=== PATIENT | female | born 1980 | race Caucasian/White ===

== ENCOUNTER 2018-04-19 21:02 | Observation (INO) ==
[2018-04-19 21:46] LABS: Basophils # 0.1 K/mcL (0.0-0.2); Basophils % 0.7 %; Eosinophils # 0.2 K/mcL (0.0-0.6); Eosinophils % 2.2 %; Hematocrit 25.6 % (35.3-44.9); Hemoglobin 6.9 g/dL (11.5-15.4); Immature Granulocytes % 0.4 % (0-4); Lymphocytes # 1.9 K/mcL (0.6-4.6); Lymphocytes % 26.6 %; Mean Corpuscular Hemoglobin 18.4 pg (28.0-33.3); Mean Corpuscular Volume 68.3 fL (83.0-100.0); Mean Platelet Volume 10.2 fL (9.4-12.4); Monocytes # 0.5 K/mcL (0.0-1.3); Monocytes % 6.4 %; Neutrophils # 4.6 K/mcL (1.6-8.9); Platelet Count 370 K/mcL (140-400); Red Blood Count 3.75 M/mcL (3.82-4.97); Red Cell Distribution Width 19.5 % (11.5-14.5); Segmented Neutrophils % 63.7 %
--- NOTE | 2018-04-19 21:56 | Emergency Department Note ---
Disposition Clinical Impression: Microcytic anemia, Acute dyspnea Dyspnea Qualifiers: Dyspnea type: unspecified Qualified Code(s): R06.00 - Dyspnea, unspecified Disposition: Admitted As Inpatient Condition: Good Referrals: NONE,PCP [Primary Care Provider] - Forms: ED Satisfaction Letter SOB HPI - General Chief Complaint: ED Shortness of Breath/Dyspnea Stated Complaint: kay Time Seen by Provider: 04/19/18 21:34 Source: patient Mode of arrival: private vehicle Limitations: no limitations Nursing Notes Reviewed: Yes Vital Signs Reviewed: Yes - History of Present Illness 37-year-old female history of depression, smoking who presents to the ER due to shortness of breath and cough. Reports she has had a cough for about the last week in duration. No fevers or sputum production during that time. States she has had bronchitis several times in the past attributing it to her smoking. Patient reports that she then started having some chest pain in the center of her chest worse with coughing or with palpation. No prior history of cardiac disease, DVT or pulmonary embolism. She reports decreased activity at home secondary to general malaise. No other complaints. Pt Subjective Complaint: shortness of breath Onset (ago): day(s) Context: recent illness Severity: mild Consistency/Duration: intermittent Improves with: nothing Worsens with: nothing Associated symptoms: Reports: chest pain, cough. Denies: fever, sputum production Treatment prior to arrival: none Cough present: Yes - Related Data Home oxygen amount: none Home Medications Medication Instructions Recorded Confirmed Prozac 10/20/17 Previous Rx's Medication Instructions Recorded Cyclobenzaprine [Flexeril] 10 mg PO HS PRN #10 tablet 10/20/17 methylPREDNISolone [Medrol] 0 mg PO DAILY #21 tablet 10/20/17 Allergies Allergy/AdvReac Type Severity Reaction Status Date / Time aspirin Allergy See Verified 01/16/18 01:35 Comments All systems ED: reviewed and negative except as stated. Constitutional: Denies: fever ENT ED: Denies: epistaxis Cardiovascular: Reports: chest pain Respiratory: Reports: cough, dyspnea. Denies: wheezes, hemoptysis, sputum production Gastrointestinal: Denies: nausea, vomiting, diarrhea, hematemesis, melena, hematochezia Genitourinary: Denies: hematuria Past Medical History - Past Medical History Attestation: Yes The following information was validated with the patient. 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 - Social History Smoking Status: Current every day smoker Smokeless Tobacco Status: No Alcohol use: Reports: none Drug use: Reports: none Physical Exam - General Limitations: no limitations General appearance: alert, in no apparent distress - Head Head exam: atraumatic, normocephalic - Eye Eye exam: Present: normal appearance - ENT ENT exam: normal exam - Neck Neck exam: Present: normal inspection - Chest Chest inspection: Present: normal inspection, symmetric chest wall rise - Respiratory Respiratory exam: Present: normal lung sounds bilaterally - Cardiovascular Cardiovascular exam: Present: regular rate, normal rhythm, normal heart sounds - Abdominal Exam Abdominal exam: Present: soft, Non-Tender. Absent: tenderness, distention, rigidity - Extremities Exam Extremities exam: Present: normal inspection, full ROM - Expanded Upper Extremity Exam Shoulder exam: Present: normal inspection, full ROM Arm exam: Present: normal inspection, full ROM Elbow exam: Present: normal inspection, full ROM Forearm/Wrist exam: Present: normal inspection, full ROM Hand exam: Present: normal inspection, full ROM - Expanded Lower Extremity Exam Hip/Pelvis exam: Present: normal inspection, full ROM Upper leg exam: Present: normal inspection, full ROM Knee exam: Present: normal inspection, full ROM Lower leg exam: Present: normal inspection, full ROM Ankle exam: Present: normal inspection, full ROM Foot/toe exam: Present: normal inspection, full ROM - Skin Skin exam: Present: other (pale) Course Course Narrative: Patient seen and examined. Vital signs reviewed. EKG, chest x-ray as well as labs. - Reevaluation(s) Reevaluation #1: Labs reviewed. Hemoglobin of 6.9. Plan to repeat the hemoglobin and hematocrit as well as type and screen and coag studies. Vital Signs Temperature 98.0 F 04/19/18 21:06 Pulse Rate 69 04/19/18 21:06 Respiratory Rate 16 04/19/18 21:06 Blood Pressure 131/85 04/19/18 21:06 O2 Sat by Pulse Oximetry 98 04/19/18 21:06 Temperature 98.0 F 04/19/18 21:06 Pulse Rate 61 04/19/18 23:24 Respiratory Rate 18 04/19/18 23:24 Blood Pressure 129/92 04/19/18 23:24 O2 Sat by Pulse Oximetry 99 04/19/18 23:24 Oxygen Delivery Oxygen Delivery Room Air Shortness of Breath/Dyspnea - [facility] Narrative Medical decision making narrative: 37-year-old female with shortness of breath and cough for several days. Found to have a hemoglobin of 6.9 confirmed with repeat of 6.7. She is on her period currently however this is her baseline and she does not report heavy bleeding. No bleeding from any other source. Rectal exam contaminated given presence of vaginal blood. Hemodynamically stable. Type and cross for 1 unit of transfusion. Admitted to the hospitalist service. - Lab Data Lab results reviewed: Yes I reviewed the patient's lab results. Result diagrams: 04/19/18 22:48 04/19/18 21:29 Lab Results 04/19/18 04/19/18 04/19/18 Range/Units 21:29 21:29 21:29 WBC 7.2 (4.3-11.1) K/mcL RBC 3.75 L (3.82-4.97) M/mcL Hgb 6.9 L (11.5-15.4) g/dL Hct 25.6 L (35.3-44.9) % MCV 68.3 L (83.0-100.0) fL MCH 18.4 L (28.0-33.3) pg MCHC 27.0 L (31.6-35.5) g/dL RDW 19.5 H (11.5-14.5) % Plt Count 370 (140-400) K/mcL MPV 10.2 (9.4-12.4) fL Immature Gran % 0.4 (0-4) % Seg Neutrophils % 63.7 % Lymphocytes % 26.6 % Monocytes % 6.4 % Eosinophils % 2.2 % Basophils % 0.7 % Neutrophils # 4.6 (1.6-8.9) K/mcL Lymphocytes # 1.9 (0.6-4.6) K/mcL Monocytes # 0.5 (0.0-1.3) K/mcL Eosinophils # 0.2 (0.0-0.6) K/mcL Basophils # 0.1 (0.0-0.2) K/mcL Platelet Estimate Normal (Normal) Hypochromasia Present A (Not Present) Anisocytosis 1+ A (Not Present) Microcytosis Present A (Not Present) PT (9.4-12.1) Seconds INR Sodium 136 (136-145) mEq/L Potassium 3.7 (3.5-5.1) mEq/L Chloride 109 H (98-107) mEq/L Carbon Dioxide 21 L (23-29) mEq/L BUN 11 (6-20) mg/dL Creatinine 0.77 (0.60-1.20) mg/dL Est GFR ( Amer) > 60 (> 60) Est GFR (Non-Af Amer) > 60 (> 60) BUN/Creatinine Ratio 14 (6-26) Glucose 95 (70-105) mg/dL Calculated Osmolality 281 (280-300) Lactic Acid 0.7 (0.5-2.2) mmol/L Calcium 8.9 (8.6-10.3) mg/dL Troponin I < 0.03 (< 0.04) ng/mL B-Natriuretic Peptide (Less than 100) pg/mL 04/19/18 04/19/18 04/19/18 Range/Units 21:29 22:24 22:48 WBC (4.3-11.1) K/mcL RBC (3.82-4.97) M/mcL Hgb 6.7 L (11.5-15.4) g/dL Hct 24.3 L (35.3-44.9) % MCV (83.0-100.0) fL MCH (28.0-33.3) pg MCHC (31.6-35.5) g/dL RDW (11.5-14.5) % Plt Count (140-400) K/mcL MPV (9.4-12.4) fL Immature Gran % (0-4) % Seg Neutrophils % % Lymphocytes % % Monocytes % % Eosinophils % % Basophils % % Neutrophils # (1.6-8.9) K/mcL Lymphocytes # (0.6-4.6) K/mcL Monocytes # (0.0-1.3) K/mcL Eosinophils # (0.0-0.6) K/mcL Basophils # (0.0-0.2) K/mcL Platelet Estimate (Normal) Hypochromasia (Not Present) Anisocytosis (Not Present) Microcytosis (Not Present) PT 11.4 (9.4-12.1) Seconds INR 1.1 Sodium (136-145) mEq/L Potassium (3.5-5.1) mEq/L Chloride (98-107) mEq/L Carbon Dioxide (23-29) mEq/L BUN (6-20) mg/dL Creatinine (0.60-1.20) mg/dL Est GFR ( Amer) (> 60) Est GFR (Non-Af Amer) (> 60) BUN/Creatinine Ratio (6-26) Glucose (70-105) mg/dL Calculated Osmolality (280-300) Lactic Acid (0.5-2.2) mmol/L Calcium (8.6-10.3) mg/dL Troponin I (< 0.04) ng/mL B-Natriuretic Peptide 60 (Less than 100) pg/mL - Radiology Data Radiology results reviewed: Yes I reviewed the patient's radiology results. Chest X-Ray 04/19/18 21:09 IMPRESSION: Negative portable chest. D/ / Fernando Anderson MD / Fernando Anderson MD Interpreting Provider: Fernando Anderson MD - EKG Data EKG attestation: Yes I reviewed and interpreted this EKG. EKG results narrative: EKG demonstrates sinus rhythm. Normal axis. Normal intervals. Normal R-wave progression. No gross ST elevations or depressions. No acute ischemic findings. Cyrus - Cyrus Situation: Demographics, MOA Background: Presenting Complaint, Relevant PMH, Meds, & Allergies Assessment: Course and respsone to treatment, Exam Concerns, Patient/Family Expectation, Pertinant Lab Results Recommendation: Barrier(s) to disposition, Recommendation based on pending studies, treatments, or consults Cyrus Report Given to: Dr. Miki Bridges Repor Time: 23:43
[2018-04-19 22:06] LABS: BUN/Creatinine Ratio 14 (6-26); Blood Urea Nitrogen 11 mg/dL (6-20); Calcium 8.9 mg/dL (8.6-10.3); Carbon Dioxide 21 mEq/L (23-29); Chloride 109 mEq/L (98-107); Glucose 95 mg/dL (70-105); Osmolality,Calculated 281 (280-300); Potassium 3.7 mEq/L (3.5-5.1); Sodium 136 mEq/L (136-145); eGFR For African Americans > 60 (> 60); eGFR For Non-African Americans > 60 (> 60)
[2018-04-19 22:07] LABS: Troponin I < 0.03 ng/mL (< 0.04)
[2018-04-19 22:12] LABS: Anisocytosis 1+ (Not Present); Hypochromasia Present (Not Present); Microcytosis Present (Not Present); Platelet Estimate Normal (Normal)
--- NOTE | 2018-04-19 22:31 | Emergency Department Note ---
Disposition Clinical Impression: Microcytic anemia, Acute dyspnea Disposition: Admitted As Inpatient Condition: Fair Referrals: NONE,PCP [Primary Care Provider] - Forms: ED Satisfaction Letter Time of Disposition: 23:41 General Adult HPI - General Chief complaint: ED Shortness of Breath/Dyspnea Stated complaint: kay Time Seen by Provider: 04/19/18 21:34 Source: patient Limitations: no limitations Nursing Notes Reviewed: Yes Vital Signs Reviewed: Yes - History of Present Illness Pain Scale: 3 - Related Data Home Medications Medication Instructions Recorded Confirmed Prozac 10/20/17 Previous Rx's Medication Instructions Recorded Cyclobenzaprine [Flexeril] 10 mg PO HS PRN #10 tablet 10/20/17 methylPREDNISolone [Medrol] 0 mg PO DAILY #21 tablet 10/20/17 Allergies Allergy/AdvReac Type Severity Reaction Status Date / Time aspirin Allergy See Verified 01/16/18 01:35 Comments Past Medical History - Past Medical History Medical history: Reports: no medical history Surgical history: Reports: Psychiatric history: Reports: anxiety, 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 - Social History Smoking Status: Current every day smoker Smokeless Tobacco Status: No Alcohol use: Reports: none Drug use: Reports: none Physical Exam - General Limitations: no limitations General appearance: alert, in no apparent distress Course Vital Signs Temperature 98.0 F 04/19/18 21:06 Pulse Rate 69 04/19/18 21:06 Respiratory Rate 16 04/19/18 21:06 Blood Pressure 131/85 04/19/18 21:06 O2 Sat by Pulse Oximetry 98 04/19/18 21:06 Temperature 98.0 F 04/19/18 21:06 Pulse Rate 61 04/19/18 23:24 Respiratory Rate 18 04/19/18 23:24 Blood Pressure 129/92 04/19/18 23:24 O2 Sat by Pulse Oximetry 99 04/19/18 23:24 Oxygen Delivery Oxygen Delivery Room Air Medical Decision Making - Lab Data Result diagrams: 04/19/18 22:48 04/19/18 21:29 Lab Results 04/19/18 04/19/18 04/19/18 Range/Units 21:29 21:29 21:29 WBC 7.2 (4.3-11.1) K/mcL RBC 3.75 L (3.82-4.97) M/mcL Hgb 6.9 L (11.5-15.4) g/dL Hct 25.6 L (35.3-44.9) % MCV 68.3 L (83.0-100.0) fL MCH 18.4 L (28.0-33.3) pg MCHC 27.0 L (31.6-35.5) g/dL RDW 19.5 H (11.5-14.5) % Plt Count 370 (140-400) K/mcL MPV 10.2 (9.4-12.4) fL Immature Gran % 0.4 (0-4) % Seg Neutrophils % 63.7 % Lymphocytes % 26.6 % Monocytes % 6.4 % Eosinophils % 2.2 % Basophils % 0.7 % Neutrophils # 4.6 (1.6-8.9) K/mcL Lymphocytes # 1.9 (0.6-4.6) K/mcL Monocytes # 0.5 (0.0-1.3) K/mcL Eosinophils # 0.2 (0.0-0.6) K/mcL Basophils # 0.1 (0.0-0.2) K/mcL Platelet Estimate Normal (Normal) Hypochromasia Present A (Not Present) Anisocytosis 1+ A (Not Present) Microcytosis Present A (Not Present) PT (9.4-12.1) Seconds INR Sodium 136 (136-145) mEq/L Potassium 3.7 (3.5-5.1) mEq/L Chloride 109 H (98-107) mEq/L Carbon Dioxide 21 L (23-29) mEq/L BUN 11 (6-20) mg/dL Creatinine 0.77 (0.60-1.20) mg/dL Est GFR ( Amer) > 60 (> 60) Est GFR (Non-Af Amer) > 60 (> 60) BUN/Creatinine Ratio 14 (6-26) Glucose 95 (70-105) mg/dL Calculated Osmolality 281 (280-300) Lactic Acid 0.7 (0.5-2.2) mmol/L Calcium 8.9 (8.6-10.3) mg/dL Troponin I < 0.03 (< 0.04) ng/mL B-Natriuretic Peptide (Less than 100) pg/mL 05/30/18 05/30/18 05/30/18 Range/Units 21:29 22:24 22:48 WBC (4.3-11.1) K/mcL RBC (3.82-4.97) M/mcL Hgb 6.7 L (11.5-15.4) g/dL Hct 24.3 L (35.3-44.9) % MCV (83.0-100.0) fL MCH (28.0-33.3) pg MCHC (31.6-35.5) g/dL RDW (11.5-14.5) % Plt Count (140-400) K/mcL MPV (9.4-12.4) fL Immature Gran % (0-4) % Seg Neutrophils % % Lymphocytes % % Monocytes % % Eosinophils % % Basophils % % Neutrophils # (1.6-8.9) K/mcL Lymphocytes # (0.6-4.6) K/mcL Monocytes # (0.0-1.3) K/mcL Eosinophils # (0.0-0.6) K/mcL Basophils # (0.0-0.2) K/mcL Platelet Estimate (Normal) Hypochromasia (Not Present) Anisocytosis (Not Present) Microcytosis (Not Present) PT 11.4 (9.4-12.1) Seconds INR 1.1 Sodium (136-145) mEq/L Potassium (3.5-5.1) mEq/L Chloride (98-107) mEq/L Carbon Dioxide (23-29) mEq/L BUN (6-20) mg/dL Creatinine (0.60-1.20) mg/dL Est GFR ( Amer) (> 60) Est GFR (Non-Af Amer) (> 60) BUN/Creatinine Ratio (6-26) Glucose (70-105) mg/dL Calculated Osmolality (280-300) Lactic Acid (0.5-2.2) mmol/L Calcium (8.6-10.3) mg/dL Troponin I (< 0.04) ng/mL B-Natriuretic Peptide 60 (Less than 100) pg/mL Critical Care Time Critical Care Time: Yes Total Critical Care Time: 35 Attestation: Chest X-Ray 04/19/18 21:09 IMPRESSION: Negative portable chest. D/ / Fernando Anderson MD / Fernando Anderson MD Interpreting Provider: Fernando Anderson MD Attestation Statement - Attestation Attestation: I examined this patient and my medical decision-making was reviewed with the Resident Physician. I agree with the documented findings, disposition and treatment plan as described except to the extent set forth below. Patient presents to the ED as she complain of shortness of breath. Onset a few days ago. Started with a cough. Denies fever. On examination she is pale. Lungs clear. Abdomen soft. Plan. The patient is anemic. The patient denies heavy periods. She denies any GI bleeding. She denies any trauma. She denies any abdominal pain. Unclear why the patient is significant only anemic. We will repeat her H&H. If this is consistent with the first draw a she will need transfused and admitted.
[2018-04-19 22:57] LABS: INR 1.1; Prothrombin Time 11.4 Seconds (9.4-12.1)
[2018-04-19 23:00] LABS: Hematocrit 24.3 % (35.3-44.9); Hemoglobin 6.7 g/dL (11.5-15.4)
[2018-04-19] MEDS ORDERED: Naloxone 0.4 MG/ML INJ IVP PRN (23:56)
--- NOTE | 2018-04-20 00:05 | Internal Med History&Physical ---
Date of Encounter: 04/20/18 Time of Encounter: 00:02 Internal Medicine - H&P: HPI Chief complaint: SON, POTTS, chest pain History of present illness: Ms. Sorto is a 37 year old female with no prior significant medical history whose home medication list includes Prozac and prn sleeping pill who presents with 1 day hx of acute SOB, POTTS, chest pain. Found to have symptomatic anemia. She denies any prodromal history of fatigue or anemia symptoms and reports onset to be acute. Today she woke up and she felt tired and fatigued associated with dyspnea on exertion to [address] from [address] lot to the hospital. Associated with chest pain sternal no radiation rates 2-3 out of 10. In the ER was found to be in symptomatically anemia On review she denies any evidence of GI bleeding. She is on her period since Tuesday but reports them to be normal and has been unchanged for years. She uses on average 4 pads a day . She reports that her menstrual cycle were unchanged since a teenager and denies any increased bleeding that is more than usual. She has 3 children and status post tubal ligation. EKG personally reviewed with rate 69, normal sinus rhythm FINDINGS: The lungs are clear. The costophrenic angles are sharp. The heart size is at the upper limits of normal. There is no discernible pneumothorax. XR/XR chest 1V portable IMPRESSION: Negative portable chest. Past Med Surg Social Fam HX - Past Medical History Medical history: no medical history Additional medical history: old back injury Psychiatric history: anxiety, depression - Past Surgical History Surgical History: Additional surgical history: ABD SURGERIES - Social History Smoking Status: Current every day smoker Smokeless Tobacco Status: No Alcohol use: none Drug use: none Internal Medicine - H&P: Meds Prozac 10/20/17 [History] 3 Allergy/AdvReac Type Severity Reaction Status Date / Time aspirin Allergy See Verified 01/16/18 01:35 Comments All Systems PM: A 10-system review of systems was performed and is negative for pertinent findings except as documented above in the HPI. Review of systems: ROS 14 point review of systems reviewed as best as possible given presentation. Pertinent positive or negative as per HPI or otherwise reviewed as negative - Constitutional Vitals: Temp Pulse Resp BP Pulse Ox 98.0 F 61 18 129/92 99 04/19/18 21:06 04/19/18 23:24 04/19/18 23:24 04/19/18 23:24 04/19/18 23:24 Exam: General - AAO x 3 Psych - Appropriate affect/speech. No agitation Eyes - RONALD. Eye lids intact. Conjunctival pallor Neuro - No gross peripheral or central neuro deficits on inspection Heart - Sinus. RRR. S1 and S2 present. No added HS/murmurs appreciated. No elevated JVD appreciated. Lung - Adequate air entry b/l, No crackles/wheezes appreciated GI - Soft, non-tender. No hepatosplenomegaly/ascites. BS+ - No CVA/suprapubic tenderness or palpable bladder distension Skin - Intact. No rash/petechiae/ecchymosis. Warm extremities Internal Med - H&P Results - Labs CBC & Chem 7: 04/19/18 22:48 04/19/18 21:29 - Assessment and plan (1) Microcytic anemia Current Visit: Yes Status: Acute Assessment and plan: based on microcytosis, elevated RDW, this is likely Fe deficiency. No overt changes in blood loss - possible need for obstetrics gynecology physician eval with TVUS outpatient consult heme for follow up outpatient empiric IV venofer empiric anemia labs pend (2) Dyspnea Current Visit: Yes Status: Acute Assessment and plan: 2/2 symptomatic anemia, transfuse 1 U pRBC ambulate in the morning and monitor symptoms with exertion once Hct is improved with transfusion Qualifiers: Dyspnea type: dyspnea on exertion Qualified Code(s): R06.09 - Other forms of dyspnea - Time Spent With Patient Total time spent is greater than 50% in coordination of care (as documented) at patient's floor/unit and/or counseling patient:
[2018-04-20 00:40] LABS: Immature Reticulocyte % 26.1 % (11.0-38.0); Retculocyte # 0.06 M/mcL (0.05-0.10); Reticulocyte % 1.5 % (1.6-2.8)
[2018-04-20 00:42] LABS: Basophils # 0.1 K/mcL (0.0-0.2); Basophils % 0.9 %; Eosinophils # 0.2 K/mcL (0.0-0.6); Hematocrit 25.7 % (35.3-44.9); Hemoglobin 7.1 g/dL (11.5-15.4); Immature Granulocytes % 0.4 % (0-4); Lymphocytes # 2.4 K/mcL (0.6-4.6); Lymphocytes % 29.4 %; Mean Corpuscular HGB Conc 27.6 g/dL (31.6-35.5); Mean Corpuscular Hemoglobin 18.9 pg (28.0-33.3); Mean Corpuscular Volume 68.4 fL (83.0-100.0); Mean Platelet Volume 10.2 fL (9.4-12.4); Monocytes # 0.5 K/mcL (0.0-1.3); Monocytes % 6.5 %; Neutrophils # 4.9 K/mcL (1.6-8.9); Platelet Count 372 K/mcL (140-400); Red Blood Count 3.76 M/mcL (3.82-4.97); Red Cell Distribution Width 19.5 % (11.5-14.5); Segmented Neutrophils % 60.8 %
[2018-04-20 01:09] LABS: % Iron Saturation 2 % (15-50); Bilirubin,Indirect 0.4 mg/dL (0.0-1.2); Bilirubin,Total 0.4 mg/dL (0.3-1.0); Ferritin < 8 ng/ml (10-120); Iron 14 mcg/dL (50-170); Transferrin 418 mg/dL (203-362)
[2018-04-20] MEDS ORDERED: 0.9 % Sodium Chloride 250 ML ONE (01:22)
[2018-04-20 01:23] LABS: Folate 12.5 ng/mL (3.0-16.0)
[2018-04-20 01:29] LABS: Anisocytosis 1+ (Not Present)
[2018-04-20 01:30] LABS: Hypochromasia Present (Not Present); Microcytosis Present (Not Present); Ovalocytes 1+ (Not Present); Platelet Estimate Normal (Normal); Poikilocytosis 1+ (Not Present)
[2018-04-20 06:56] LABS: Hematocrit 25.6 % (35.3-44.9); Hemoglobin 7.2 g/dL (11.5-15.4)
[2018-04-20] MEDS ORDERED: Iron Sucrose Complex 400 MG in 0.9 % Sodium Chloride 250 ML IVPB ONE (09:00)
[2018-04-20] MEDS ORDERED: 0.9 % Sodium Chloride Mini Bag 100 ML ONE (12:05)
--- NOTE | 2018-04-20 16:06 | Event Note ---
Date of Encounter: 04/20/18 Time of Encounter: 12:25 No acute changes since pt was admitted after mid night. Pt states breathing has improved but still has some SOB when she ambulates to the rest room. Pallor improving. Pt denies previous hx of Fe deficiency anemia athat she is aware of. Will give another unit of PRBC. Tire Maintenance Technician consult pending. IV Fe ordered by admitting physician.
--- NOTE | 2018-04-20 17:19 | Oncology Inp Consult Note ---
<Brittaney Gaspar L - Last Filed: 04/21/18 15:14> Date of Encounter: 04/20/18 Time of Encounter: 15:00 Assessment and Plan (1) Iron deficiency anemia Status: Acute Assessment and plan: Acute onset, microcytic, hypochromic, ferritin <8 Etiology unclear- patient currently menstruating but reports "light flow", regular cycle,with no unusual or heavy menstrual cycles. She declines any recent melena, hematemesis or hematochezia. Folate, B12, indirect bili normal-making hemolysis unlikely. Will check LDH. No blood noted on UA specimen. No prior history of anemia or GI surgical intervention. Discussed with Dr. Shaver-transition teacher for inpatient endoscopy- recommended close follow up as outpatient for EGD/colonoscopy. Ordered celiac testing for AM. DELFINO of unclear etiology-suspicious for acute blood loss versus malabsorption. Given acuteness, favor acute blood loss. Currently, no clinical s/s active bleeding, patient denies history of s/s bleeding. Monitor hgb in am- if hgb has not improved as expected may consider need for inpatient scopes. If patient needs inpatient scopes for continued anemia and scopes are negative, may consider CT abdomen/pelvis to assess for any source of bleeding. Transfuse supportively for hgb <7. Agree with venofer. Will arrange for follow up with Dr. Pichardo after discharge. Please refer to Dr. Pichardo's attestation below for additional details. Qualifiers: Qualified Code(s): D50.9 - Iron deficiency anemia, unspecified - Data of Consult Patient: new to practice Consult date: 04/20/18 Requesting Physician: Sylvia Livingston MD Primary Care Provider: PCP NONE - Consult Narrative Reason for consult: DELFINO History of present illness: Ms. Sorto is a 37 year old female with past medical history significant for depression and insomnia; presented to [facility] with report of chest pain and SOB. Lab work revealed microcytic, hypochromic anemia with hgb 6.9. This is an acute decrease from hgb 12.7 in September 2017. Patient denies s/s of abnormal bleeding such as hematemesis, hematochezia or melena. LMP began Tuesday, reports menstrual period as light and denies history of heavy menstrual bleeding. UA negative for blood. Lab work reveals severe iron deficiency. Hematology consulted for further recommendations. Past Med Surg Social Fam HX - Past Medical History Medical history: no medical history Additional medical history: old back injury Psychiatric history: anxiety, depression - Past Surgical History Surgical History: Additional surgical history: ABD SURGERIES, LEFT TUBE AND OVARY REMOVED - Social History Smoking Status: Current every day smoker Packs per day: HALF PACK Smokeless Tobacco Status: No Alcohol use: none Drug use: none - Family History Mother Living Status: Still Living Hx Family Cardiac Disorders: Yes (ENLARGED HEART, CHF) Father Living Status: Still Living Hx Family Psychosocial Disorders: Yes Medications and Allergies FLUoxetine HCl [Prozac] 10 mg PO DAILY 10/20/17 [History] traZODone [TraZODone] 50 mg PO HS 04/20/18 [History] Ascorbic Acid [Vitamin C] 500 mg PO TIDWM 14 Days #42 tablet 04/22/18 [Rx] Ferrous Sulfate 325 mg PO TIDWM 14 Days #42 tablet 04/22/18 [Rx] Nicotine Patch [Nicoderm] 14 mg TD DAILY 14 Days #14 patch.td24 04/22/18 [Rx] 3 Allergy/AdvReac Type Severity Reaction Status Date / Time aspirin Allergy See Verified 04/20/18 09:17 Comments Constitutional: Present: fatigue, weakness. Absent: anorexia, chills, fever(s) , night sweats, weight loss Eyes: Absent: change in vision Nose, mouth and throat: Absent: dysphagia Cardiovascular: Present: chest pain. Absent: irregular heart rhythm, palpitations Respiratory: Present: dyspnea. Absent: cough, hemoptysis Gastrointestinal: Absent: abdominal pain, hematemesis, hematochezia, melena, nausea, vomiting Genitourinary: Absent: abnormal menses, abnormal vaginal bleeding, dysuria, flank pain, hematuria, menorrhagia Menstruation: as per HPI, currently menstrual, period light, other Additional comments: s/p tubal ligation Musculoskeletal: Present: muscle weakness Integumentary: Absent: wounds Neurological: Absent: focal weakness, frequent falls Hematologic/Lymphatic: Present: as per HPI Oncology - Exam - Constitutional Vitals: Temp Pulse Resp BP Pulse Ox 97.9 F 59 16 116/76 98 04/20/18 14:58 04/20/18 14:58 04/20/18 14:58 04/20/18 14:58 04/20/18 14:58 General appearance: cooperative, no acute distress, obese, no febrile - Head Head exam: Present: atraumatic - ENT ENT exam: Present: mucous membranes moist - Respiratory Respiratory exam: Present: CTAB. Absent: respiratory distress - Cardiovascular Cardiovascular exam: Present: RRR, +S1, +S2 - GI/Abdominal GI/Abdominal exam: Present: normal bowel sounds, soft. Absent: guarding, rebound, tenderness - Extremities Exam Extremities exam: Present: normal inspection. Absent: calf tenderness - Neurological Exam Neurological exam: Present: alert, oriented X3, no focal deficits, strengths equal and symetr throughout - Psychiatric Psychiatric exam: Present: normal affect, normal mood - Skin Skin exam: Present: dry, intact, pallor, warm Oncology - Results Labs: 3 04/20/18 04/20/18 04/20/18 06:34 00:27 00:27 WBC 8.0 RBC 3.76 L Hgb 7.2 L 7.1 L Hct 25.6 L 25.7 L MCV 68.4 L MCH 18.9 L MCHC 27.6 L RDW 19.5 H Plt Count 372 MPV 10.2 Reticulocyte # Immature Gran % 0.4 Seg Neutrophils % 60.8 Lymphocytes % 29.4 Monocytes % 6.5 Eosinophils % 2.0 Basophils % 0.9 Neutrophils # 4.9 Lymphocytes # 2.4 Monocytes # 0.5 Eosinophils # 0.2 Basophils # 0.1 Platelet Estimate Normal Hypochromasia Present A Poikilocytosis 1+ A Anisocytosis 1+ A Microcytosis Present A Ovalocytes 1+ A Percent Retic Immature Retic Fraction Retic Hgb Equivalent Iron % Saturation Transferrin Ferritin Total Bilirubin Direct Bilirubin Indirect Bilirubin Vitamin B12 445 Folate 12.5 3 04/20/18 04/20/18 00:27 00:27 WBC RBC Hgb Hct MCV MCH MCHC RDW Plt Count MPV Reticulocyte # 0.06 Immature Gran % Seg Neutrophils % Lymphocytes % Monocytes % Eosinophils % Basophils % Neutrophils # Lymphocytes # Monocytes # Eosinophils # Basophils # Platelet Estimate Hypochromasia Poikilocytosis Anisocytosis Microcytosis Ovalocytes Percent Retic 1.5 L Immature Retic Fraction 26.1 Retic Hgb Equivalent 18.6 L Iron 14 L % Saturation 2 L Transferrin 418 H Ferritin < 8 L Total Bilirubin 0.4 Direct Bilirubin 0.0 Indirect Bilirubin 0.4 Vitamin B12 Folate Consult Discharge Plan - Plan Additional Instructions: Follow up with PCP in 2 days after discharge. Recheck CBC at that time (anemia) . Consider referral to GI for endoscopy if anemia worsens. Referrals: NONE,PCP [Primary Care Provider] - Prescriptions: Ascorbic Acid [Vitamin C] 500 mg PO TIDWM 14 Days #42 tablet Ferrous Sulfate 325 mg PO TIDWM 14 Days #42 tablet Nicotine Patch [Nicoderm] 14 mg TD DAILY 14 Days #14 patch.td24 <Calvin Pichardo - Last Filed: 05/01/18 08:51> Date of Encounter: 04/21/18 - Data of Consult Requesting Physician: Sylvia Livingston MD Primary Care Provider: PCP NONE - Consult Narrative History of present illness: Ms. Sorto is a 37 year old female Oncology - Exam - Constitutional Vitals: Temp Pulse Resp BP Pulse Ox 97.9 F 76 18 128/77 96 04/22/18 06:38 04/22/18 06:38 04/22/18 06:38 04/22/18 06:38 04/22/18 06:38 - Attending Attestation Seen and examined patient and agree with assessment and plan. Patient with iron deficiency anemia. Plan for eventual endoscopic evaluation. And depending on the stability of her Hgb and the desires of the patient, we could propceed with the evaluation inpatient vs. outpatient.
[2018-04-21 02:03] LABS: Basophils % 0.5 %; Mean Platelet Volume 10.4 fL (9.4-12.4)
[2018-04-21 02:04] LABS: Eosinophils # 0.2 K/mcL (0.0-0.6); Eosinophils % 1.8 %; Hematocrit 27.4 % (35.3-44.9); Hemoglobin 7.8 g/dL (11.5-15.4); Immature Granulocytes % 0.4 % (0-4); Lymphocytes % 23.1 %; Mean Corpuscular HGB Conc 28.5 g/dL (31.6-35.5); Mean Corpuscular Hemoglobin 20.2 pg (28.0-33.3); Monocytes # 0.5 K/mcL (0.0-1.3); Monocytes % 6.2 %; Neutrophils # 5.7 K/mcL (1.6-8.9); Platelet Count 317 K/mcL (140-400); Red Blood Count 3.86 M/mcL (3.82-4.97); Red Cell Distribution Width 20.2 % (11.5-14.5)
[2018-04-21 02:17] LABS: Lymphocytes # 1.9 K/mcL (0.6-4.6)
[2018-04-21 02:59] LABS: Hypochromasia Present (Not Present); Macrocytosis Present (Not Present); Microcytosis Present (Not Present); Ovalocytes 1+ (Not Present); Polychromasia 1+ (Not Present)
[2018-04-21 03:03] LABS: Anisocytosis 1+ (Not Present); Platelet Estimate Normal (Normal); Poikilocytosis 1+ (Not Present)
--- NOTE | 2018-04-21 11:11 | Internal Med Progress Note ---
Date of Encounter: 04/21/18 Time of Encounter: 11:09 - Assessment and plan (1) Dyspnea Current Visit: Yes Status: Resolved Assessment and plan: Likely secondary to symptomatic anemia. Now resolved s/p transfusion of 2 units PRBC and venofer. Qualifiers: Dyspnea type: dyspnea on exertion Qualified Code(s): R06.09 - Other forms of dyspnea (2) Microcytic anemia Current Visit: Yes Status: Acute Assessment and plan: Likely iron deficiency. Hemoglobin improved this AM s/p 2 units PRBC and venofer yesterday. Asymptomatic now. Start PO iron supplementation with vitamin C. Heme/onc consulted; appreciate input. Will defer further workup to them. Recheck CBC in AM. (3) Depression Current Visit: Yes Status: Chronic Assessment and plan: Continue home medications. Qualifiers: Depression Type: other depression Qualified Code(s): F32.89 - Other specified depressive episodes (4) Insomnia Current Visit: Yes Status: Acute Assessment and plan: Continue home medications. Qualifiers: Insomnia type: other insomnia Qualified Code(s): G47.09 - Other insomnia (5) DVT prophylaxis Current Visit: Yes Status: Acute Assessment and plan: Anticoagulation deferred due to acute anemia requiring transfusions. Start SCDs. - Time Spent With Patient Total time spent is greater than 50% in coordination of care (as documented) at patient's floor/unit and/or counseling patient: less than 15 minutes - Subjective Interval history: Patient had no acute events overnight. She states that she is feeling "back to normal." Chest pain and SOB have resolved. She denies fever, chills, nausea, vomiting, abdominal pain, hematemesis, BRBPR, and melena. She has no complaints at this time. - Constitutional Vitals: Temp Pulse Resp BP Pulse Ox 97.9 F 84 16 116/68 99 04/21/18 11:07 04/21/18 11:07 04/21/18 11:07 04/21/18 11:07 04/21/18 11:07 General appearance: Present: cooperative, A&O X 3, pleasant, no acute distress, obese, answers questions appropriately - Respiratory Respiratory exam: Present: CTAB. Absent: accessory muscle use, rales, rhonchi, wheezes Additional comments: Normal WOB - Cardiovascular Cardiovascular exam: Present: RRR, +S1, +S2. Absent: diastolic murmur, gallop, rubs, systolic murmur Additional comments: No BLE edema - GI/Abdominal GI/Abdominal exam: Present: normal bowel sounds, soft. Absent: distended, hepatomegaly, mass, splenomegaly, tenderness - Psychiatric Psychiatric exam: Present: normal affect, normal mood. Absent: agitated, anxious, depressed - Skin Skin exam: Present: dry, intact, warm. Absent: cyanosis, rash Internal Medicine: Result - Labs CBC & Chem 7: 04/21/18 01:39 04/19/18 21:29 Labs: Short CBC 04/21/18 Range/Units 01:39 WBC 8.4 (4.3-11.1) K/mcL Hgb 7.8 L (11.5-15.4) g/dL Hct 27.4 L (35.3-44.9) % Plt Count 317 (140-400) K/mcL Neutrophils # 5.7 (1.6-8.9) K/mcL - ABG Interpretation ABG results: PT/INR, D-dimer PT 11.4 Seconds (9.4-12.1) 04/19/18 22:24 - VTE Reasons for not Prescribing Prophylaxis: Medical contraindication (Anemia requiring transfusions) Documentation of Mechanical Device: Intermittent pneumatic compression device Consult Discharge Plan - Plan Referrals: NONE,PCP [Primary Care Provider] -
[2018-04-21] MEDS: Ascorbic Acid 500 MG TABLET PO SCH ×2 (13:08→15:56)
[2018-04-21] MEDS: FLUoxetine HCl 10 MG CAPSULE PO SCH (13:08)
[2018-04-21] MEDS ORDERED: traZODone 50 MG TABLET PO SCH (21:00)
[2018-04-21] MEDS: Nicotine 14 MG PATCH.TD24 TD SCH (22:38)
[2018-04-22 02:10] LABS: Basophils % 0.7 %; Immature Granulocytes % 1.3 % (0-4); Lymphocytes % 25.1 %
[2018-04-22 02:11] LABS: Basophils # 0.1 K/mcL (0.0-0.2); Eosinophils # 0.2 K/mcL (0.0-0.6); Hematocrit 26.2 % (35.3-44.9); Hemoglobin 7.6 g/dL (11.5-15.4); Lymphocytes # 2.3 K/mcL (0.6-4.6); Mean Corpuscular Hemoglobin 20.8 pg (28.0-33.3); Mean Corpuscular Volume 71.6 fL (83.0-100.0); Mean Platelet Volume 11.1 fL (9.4-12.4); Monocytes # 0.5 K/mcL (0.0-1.3); Monocytes % 5.2 %; Nucleated Red Blood Cells 0.3 /100 WBC (0); Platelet Count 338 K/mcL (140-400); Red Blood Count 3.66 M/mcL (3.82-4.97); Red Cell Distribution Width 20.8 % (11.5-14.5); Segmented Neutrophils % 65.7 %
[2018-04-22 02:28] LABS: BUN/Creatinine Ratio 16 (6-26); Blood Urea Nitrogen 13 mg/dL (6-20); Calcium 8.6 mg/dL (8.6-10.3); Carbon Dioxide 23 mEq/L (23-29); Chloride 112 mEq/L (98-107); Glucose 95 mg/dL (70-105); Osmolality,Calculated 292 (280-300); Potassium 3.9 mEq/L (3.5-5.1); Sodium 141 mEq/L (136-145); eGFR For African Americans > 60 (> 60); eGFR For Non-African Americans > 60 (> 60)
[2018-04-22 03:25] LABS: Platelet Estimate Normal (Normal)
[2018-04-22 03:26] LABS: Anisocytosis 2+ (Not Present); Hypochromasia Present (Not Present); Poikilocytosis 1+ (Not Present); Polychromasia 1+ (Not Present)
[2018-04-22 07:22] VITALS: BP 128/77
[2018-04-22] MEDS: FLUoxetine HCl 10 MG CAPSULE PO SCH (08:48)
[2018-04-22] MEDS: Ascorbic Acid 500 MG TABLET PO SCH (08:48)
[2018-04-22] MEDS: Nicotine 14 MG PATCH.TD24 TD SCH (08:49)
--- NOTE | 2018-04-22 10:05 | Discharge Summary ---
- NOTES TO OUTPATIENT PROVIDER Notes to Outpatient Provider: Follow up with PCP in 2 days after discharge. Recheck CBC at that time (anemia). Consider referral to GI for endoscopy if anemia worsens. Orders not resulted at time of discharge: Pending orders 04/21/18 01:39 Tissue Transglutaminase Ab,IgA AM 0400 Date of Encounter: 04/22/18 Time of Encounter: 10:03 - Discharge Diagnosis (1) Dyspnea Priority: Primary Status: Resolved Qualifiers: Dyspnea type: dyspnea on exertion Qualified Code(s): R06.09 - Other forms of dyspnea (2) Microcytic anemia Priority: Secondary Status: Acute (3) Depression Priority: Secondary Status: Chronic Qualifiers: Depression Type: other depression Qualified Code(s): F32.89 - Other specified depressive episodes (4) Insomnia Priority: Secondary Status: Acute Qualifiers: Insomnia type: other insomnia Qualified Code(s): G47.09 - Other insomnia (5) DVT prophylaxis Priority: Secondary Status: Acute Hospital course: Ms. Sorto is a 37 year old female admitted for dyspnea and chest pain likely secondary to microcytic anemia. Patient was admitted for observation to general medical floor with telemetry. She was transfused 2 units PRBC and venofer. Hemoglobing improved post-transfusion and remained stable on day of discharge. She was started on PO ferrous sulfate/vitamin C supplementation. She is back to her baseline without any SOB or chest pain today. Cardiac enzymes were normal. She wants to go home. I spoke with heme/onc, who were consulted on case, and they agreed with consideration of endoscopy as outpatient if hemoglobin remains stable post-transfusion. Patient will be discharge with prescription for ferrous sulfate/vitamin C. She will follow up with PCP in 2 days after discharge. Repeat CBC can be checked at that time to monitor anemia. She can be referred to outpatient GI for endoscopy if anemia worsens. Patient has met maximum benefit of this hospitalization and will be discharged home in stable condition. Discharge discussed with: patient, nurse, social work - Time Spent with Patient Total time spent providing and/or coordinating discharge services: Less than 30 minutes - Discharge Medications Prescriptions: Ascorbic Acid [Vitamin C] 500 mg PO TIDWM 14 Days #42 tablet Ferrous Sulfate 325 mg PO TIDWM 14 Days #42 tablet Nicotine Patch [Nicoderm] 14 mg TD DAILY 14 Days #14 patch.td24 Home Medications: FLUoxetine HCl [Prozac] 10 mg PO DAILY 10/20/17 [History] traZODone [TraZODone] 50 mg PO HS 04/20/18 [History] Ascorbic Acid [Vitamin C] 500 mg PO TIDWM 14 Days #42 tablet 04/22/18 [Rx] Ferrous Sulfate 325 mg PO TIDWM 14 Days #42 tablet 04/22/18 [Rx] Nicotine Patch [Nicoderm] 14 mg TD DAILY 14 Days #14 patch.td24 04/22/18 [Rx] Allergies/Adverse Reactions: 3 Allergy/AdvReac Type Severity Reaction Status Date / Time aspirin Allergy See Verified 04/20/18 09:17 Comments Date of admission: 04/19/18 23:53 Primary care physician: PCP NONE Consults: 04/20/18 00:00 Consult to Oncology Hematology [CONS] Routine Consulting Provider: Sarah Wade Reason for Consult: anemia eval and follow up Call Completed: No Discharging clinician: Rafat Limon Anticipated date of discharge: 04/22/18 - Constitutional Vitals: Temp Pulse Resp BP Pulse Ox 97.9 F 76 18 128/77 96 04/22/18 06:38 04/22/18 06:38 04/22/18 06:38 04/22/18 06:38 04/22/18 06:38 General appearance: Present: cooperative, A&O X 3, pleasant, no acute distress, obese, answers questions appropriately - Respiratory Respiratory exam: Present: CTAB. Absent: accessory muscle use, rales, rhonchi, wheezes Additional comments: Normal WOB - Cardiovascular Cardiovascular exam: Present: RRR, +S1, +S2. Absent: diastolic murmur, gallop, rubs, systolic murmur Additional comments: No BLE edema - GI/Abdominal GI/Abdominal exam: Present: normal bowel sounds, soft. Absent: distended, hepatomegaly, mass, splenomegaly, tenderness - Psychiatric Psychiatric exam: Present: normal affect, normal mood. Absent: agitated, anxious, depressed - Skin Skin exam: Present: dry, intact, warm. Absent: cyanosis, rash - Patient Status Disposition: Home, Self-Care Condition: Good Overall status at discharge: patient is progressing back to baseline - Discharge Instructions Follow Up With: NONE,PCP [Primary Care Provider] - Additional Instructions: Follow up with PCP in 2 days after discharge. Recheck CBC at that time (anemia) . Consider referral to GI for endoscopy if anemia worsens. - Diet and Activity Activity: resume usual activities as tolerated Diet: regular diet (Consume leafy greens.) - VTE Reasons for not Prescribing Prophylaxis: Medical contraindication (Anemia requiring transfusions) Documentation of Mechanical Device: Intermittent pneumatic compression device
--- NOTE | 2018-04-23 10:43 | Electrocardiograph Report ---
[place] [address] Test Date: 2018-04-19 Pat Name: Yue Sorto Department: 104 Room: [facility] Gender: F [employer] Team Leader: JOYA : 1980 Requested By: Juanito Garrett Order Number: [id number] Reading MD: Emanuel Batista Measurements Intervals [place] Rate: 69 P: 53 TN: 133 QRS: 34 QRSD: 79 T: 35 QT: 391 QTc: 410 Interpretive Statements SINUS RHYTHM WITH SINUS ARRHYTHMIA Electronically Signed On 04-23-2018 10:42:00 EDT by Emanuel Batista
[2018-04-24 07:57] LABS: Tissue Transglutaminase IgA 1 U/mL (0-3)
== END 2018-04-22 11:38 | disposition home or self-care (01) ==
LOC: EMEROO 21:02 → 3NENU 21:02
PROVIDERS: ADMIT Internal Medicine; ATTEND Internal Medicine

== ENCOUNTER 2022-06-11 23:03 | Observation (INO) ==
[2022-06-11] MEDS ORDERED: Nitroglycerin 0.4 MG TAB.SUBL SL PRN (23:45)
[2022-06-12 00:26] LABS: Basophils # 0.1 K/mcL (0.0-0.2); Basophils % 0.7 %; Eosinophils # 0.2 K/mcL (0.0-0.6); Eosinophils % 1.7 %; Hematocrit 32.7 % (35.3-44.9); Immature Granulocytes % 0.3 % (0-4); Lymphocytes # 2.5 K/mcL (0.6-4.6); Lymphocytes % 28.3 %; Mean Corpuscular HGB Conc 30.6 g/dL (31.6-35.5); Mean Corpuscular Hemoglobin 24.8 pg (28.0-33.3); Mean Corpuscular Volume 80.9 fL (83.0-100.0); Mean Platelet Volume 10.8 fL (9.4-12.4); Monocytes # 0.5 K/mcL (0.0-1.3); Monocytes % 5.4 %; Neutrophils # 5.6 K/mcL (1.6-8.9); Platelet Count 382 K/mcL (140-400); Red Blood Count 4.04 M/mcL (3.82-4.97); Segmented Neutrophils % 63.6 %; White Blood Count 8.8 K/mcL (4.3-11.1)
[2022-06-12 00:27] LABS: Alanine Aminotransferase 12 Units/L (7-52); Albumin/Globulin Ratio 1.3 (1.1-2.2); Alkaline Phosphatase 65 Units/L (34-104); Aspartate Amino Transferase 13 Units/L (13-39); BUN/Creatinine Ratio 13 (6-26); Bilirubin,Direct 0.1 mg/dL (0.0-0.2); Bilirubin,Indirect 0.2 mg/dL (0.0-1.0); Bilirubin,Total 0.3 mg/dL (0.3-1.0); Blood Urea Nitrogen 12 mg/dL (6-20); Calcium 9.1 mg/dL (8.6-10.3); Carbon Dioxide 20 mEq/L (23-29); Chloride 110 mEq/L (98-107); Globulin 3.1 g/dL (2.4-3.5); Glucose 88 mg/dL (70-105); Lipase 20 Units/L (11-82); Osmolality,Calculated 287 (280-300); Potassium 3.8 mEq/L (3.5-5.1); Sodium 139 mEq/L (136-145); Total Protein 7.1 g/dL (6.4-8.9); eGFR For African Americans > 60 (> 60); eGFR For Non-African Americans > 60 (> 60)
[2022-06-12 02:22] LABS: Troponin I 0.05 ng/mL (< 0.04)
[2022-06-12] MEDS ORDERED: Melatonin 3 MG TABLET PO PRN (02:45)
[2022-06-12] MEDS ORDERED: Naloxone 0.4 MG/ML INJ IVP PRN (02:45)
[2022-06-12] MEDS ORDERED: Ondansetron ODT 4 MG TAB.RAPDIS SL PRN (02:45)
[2022-06-12] MEDS ORDERED: Perflutren Lipid Microsphere 1.3 ML in 0.9 % Sodium Chloride 8.7 ML IVP PRN (02:48)
[2022-06-12 06:59] LABS: Hematocrit 30.6 % (35.3-44.9); Hemoglobin 9.4 g/dL (11.5-15.4); Mean Corpuscular HGB Conc 30.7 g/dL (31.6-35.5); Mean Corpuscular Hemoglobin 25.1 pg (28.0-33.3); Mean Corpuscular Volume 81.6 fL (83.0-100.0); Mean Platelet Volume 10.6 fL (9.4-12.4); Platelet Count 318 K/mcL (140-400); Red Blood Count 3.75 M/mcL (3.82-4.97); White Blood Count 8.5 K/mcL (4.3-11.1)
[2022-06-12 07:22] LABS: BUN/Creatinine Ratio 12 (6-26); Blood Urea Nitrogen 11 mg/dL (6-20); Calcium 8.7 mg/dL (8.6-10.3); Carbon Dioxide 21 mEq/L (23-29); Chloride 112 mEq/L (98-107); Chol/HDL Ratio 3.7 (0-4.9); Cholesterol 176 mg/dL (< 200); Glucose 93 mg/dL (70-105); HDL Cholesterol 48 mg/dL (40-59); LDL Cholesterol,Calculated 104 mg/dL (< 100); Magnesium 1.9 mg/dL (1.6-2.6); Osmolality,Calculated 287 (280-300); Phosphorous 3.3 mg/dL (2.7-4.5); Potassium 3.7 mEq/L (3.5-5.1); Sodium 139 mEq/L (136-145); Triglycerides 120 mg/dL (< 150); eGFR For African Americans > 60 (> 60); eGFR For Non-African Americans > 60 (> 60)
[2022-06-12 07:34] LABS: Thyroid Stimulating Hormone 2.669 mcIU/mL (0.340-5.600)
[2022-06-12] MEDS ORDERED: Regadenoson 0.4 MG/5 ML SYRINGE IVP ONE (09:31)
[2022-06-12 09:38] LABS: Bacteria,Urine Few per hpf (None-Few); Bilirubin,Urine Negative (Negative); Blood,Urine Negative (Negative); Clarity,Urine Clear (Clear); Color,Urine Yellow (Yellow); Glucose,Urine (UA) Normal (Normal); Ketones,Urine Negative (Negative); Leukocyte Esterase,Urine Trace (Negative); Mucus,Urine Few per lpf (None-Few); Nitrite,Urine Positive (Negative); Protein,Urine Trace mg/dL (Neg-Trace); RBC,Urine 0-3 per hpf (0-3); Specific Gravity,Urine 1.023 (1.010-1.025); Squamous Epithelial Cell,Urine Moderate per hpf (None-Few); Urobilinogen,Urine Normal (Normal); WBC,Urine 15-30 per hpf (0-3)
[2022-06-12 10:15] LABS: Amphetamine Screen,Urine Negative ng/mL (Cutoff=1000); Barbiturate Screen,Urine Negative ng/mL (Cutoff=200); Benzodiazepines Screen,Urine Negative ng/mL (Cutoff=200); Cannabinoid Screen,Urine Negative ng/mL (Cutoff = 50); Cocaine Screen,Urine Negative ng/mL (Cutoff= 300); Opiate Screen,Urine Positive ng/mL (Cutoff=300); Phencyclidine Screen,Urine Negative ng/mL (Cutoff=25)
[2022-06-12 10:29] LABS: Estimated Average Glucose 120 mg/dl; Hemoglobin A1C 5.8 %
[2022-06-12 15:22] VITALS: BP 158/93; PULSE 70; TEMP 98.3; O2SAT 99
== END 2022-06-12 16:38 | disposition home or self-care (01) ==
LOC: EMEROOARM 23:03 → 3BNU 23:03 → SUATTDRO 06-12 02:47 → 3BNU 06-12 05:05
PROVIDERS: ADMIT Internal Medicine; ATTEND Registered Nurse